=== PATIENT | male | born 1965 | race Caucasian/White ===

== ENCOUNTER 2020-05-17 19:13 | Observation (INO) ==
[2020-05-17] MEDS ORDERED: MORPHINE 4 MG/1 ML VIAL IV STA (19:29)
[2020-05-17] MEDS ORDERED: ASPIRIN 325 MG TABLET PO STA (19:29)
[2020-05-17] MEDS ORDERED: ONDANSETRON 4 MG/2 ML VIAL IV STA (19:29)
[2020-05-17] MEDS ORDERED: NITROGLYCERIN 2% OINT 1 INCH/GM PACK TOP STA (19:29)
[2020-05-17 21:24] LABS: Basophils % 0.3 % (0.0-0.8); Eosinophils # 0.1 10*3/uL (0.0-0.87); Eosinophils % 1.1 % (0.00-10.9); Hematocrit 46.7 VOL% (42.0-52.0); Hemoglobin 16.7 GM/DL (14.0-18.0); Immature Granulocytes % 0.5 %; Immature Granulocytes Absolute 0.03 #; Lymphocytes # 2.6 10*3/uL (1.4-4.0); Lymphocytes % 40.2 % (21.2-54.2); Mean Corpuscular HGB Conc 35.8 GM/DL (32-36); Mean Platelet Volume 11.5 FL (9.6-12.0); Monocytes % 8.1 % (1.7-12.7); Neutrophils % 49.8 % (38.7-73.9); Platelet Count 125 T/CUMM (130-400); Red Blood Count 5.19 MC/CUMM (3.8-5.5); Red Cell Distribution Width 11.9 % (9.3-17.3); White Blood Count 6.4 T/CUMM (4-12)
[2020-05-17 21:51] LABS: Alanine Aminotransferase 56 U/L (16-61); Alkaline Phosphatase 55 U/L (45-117); Aspartate Amino Transferase 27 U/L (0-37); Bilirubin,Total < 0.39 MG/DL (0.2-1.0); Blood Urea Nitrogen 15 MG/DL (7-18); Calcium 9.7 MG/DL (8.5-10.1); Estimated Glom Filtration Rate 102 ML/MIN; Glucose 98 MG/DL (74-106); Osmolality,Calculated 277.5 MOS/KG (273-304); Total Protein 7.7 G/DL (6.4-8.3)
[2020-05-18] MEDS ORDERED: NITROGLYCERIN SL 0.4 MG TABLET SL PRN (01:20)
[2020-05-18] MEDS ORDERED: ACETAMINOPHEN 325 MG TABLET PO PRN (01:21)
[2020-05-18] MEDS ORDERED: ONDANSETRON 4 MG/2 ML VIAL IV PRN (01:21)
[2020-05-18] MEDS ORDERED: hydrALAZINE 20 MG/1 ML VIAL IV PRN (01:21)
[2020-05-18] MEDS ORDERED: DEXTROSE 50% 25 GM/50 ML VIAL IV PRN (01:21)
[2020-05-18] MEDS ORDERED: GLUCAGON 1 MG VIAL IM PRN (01:21)
[2020-05-18] MEDS ORDERED: MORPHINE 4 MG/1 ML VIAL IV PRN (01:21)
[2020-05-18] MEDS ORDERED: DOCUSATE SODIUM 100 MG CAPSULE PO PRN (01:21)
[2020-05-18] MEDS ORDERED: IBUPROFEN 600 MG TABLET PO ONE (01:25)
[2020-05-18 02:33] LABS: Basophils % 0.3 % (0.0-0.8); Eosinophils # 0.1 10*3/uL (0.0-0.87); Eosinophils % 0.9 % (0.00-10.9); Hematocrit 48.5 VOL% (42.0-52.0); Hemoglobin 16.7 GM/DL (14.0-18.0); Immature Granulocytes % 0.3 %; Immature Granulocytes Absolute 0.02 #; Lymphocytes # 2.6 10*3/uL (1.4-4.0); Lymphocytes % 39.2 % (21.2-54.2); Mean Corpuscular HGB Conc 34.4 GM/DL (32-36); Mean Corpuscular Volume 91.9 FL (87-102); Mean Platelet Volume 9.7 FL (9.6-12.0); Monocytes % 7.2 % (1.7-12.7); Neutrophils % 52.1 % (38.7-73.9); Platelet Count 206 T/CUMM (130-400); Red Blood Count 5.28 MC/CUMM (3.8-5.5); White Blood Count 6.7 T/CUMM (4-12)
[2020-05-18] MEDS ORDERED: INFLUENZA VIRUS VACCINE 0.5 ML SYRINGE IM ONE (02:41)
[2020-05-18 02:55] LABS: Calcium 9.5 MG/DL (8.5-10.1); Osmolality,Calculated 282.4 MOS/KG (273-304); Risk Ratio 2.91; Thyroid Stimulating Hormone 3.63 uIU/ml (0.358-3.74); VLDL CHOLESTEROL 28.8 MG/DL
[2020-05-18] MEDS ORDERED: LOSARTAN/HCTZ 50-12.5 MG TABLET PO SCH (09:00)
[2020-05-18] MEDS ORDERED: hydroCHLOROthiazide 25 MG TABLET PO SCH (09:00)
[2020-05-18] MEDS ORDERED: LOSARTAN 50 MG TABLET PO SCH (09:00)
[2020-05-18] MEDS: ENOXAPARIN 40 MG/0.4 ML SYRINGE SUBCUT SCH ×2 (09:29→09:32)
[2020-05-18 09:51] LABS: Troponin I < 0.015 NG/ML (0.00-0.045)
[2020-05-18 11:19] VITALS: BP 130/78
== END 2020-05-18 13:17 | disposition home or self-care (01) ==
LOC: N.ED 19:13 → N.EDINP 19:13 → N.3E 05-18 00:37
PROVIDERS: ADMIT Family Medicine; ATTEND Family Medicine

== ENCOUNTER 2020-07-17 06:15 | Inpatient (IN) ==
[2020-07-17] MEDS ORDERED: LEVOFLOXACIN 500 MG TABLET PO ONE (06:30)
[2020-07-17] MEDS ORDERED: ROCURONIUM 50 MG/5 ML VIAL IV ONE (06:37)
[2020-07-17] MEDS ORDERED: LIDOCAINE 2% 5 ML VIAL ONE (06:37)
[2020-07-17] MEDS ORDERED: fentaNYL 250 MCG/5 ML VIAL ONE ×2 (06:37→07:56)
[2020-07-17] MEDS ORDERED: MIDAZOLAM 2 MG/2 ML VIAL ONE (06:37)
[2020-07-17] MEDS ORDERED: propofoL 200 MG/20 ML VIAL IV ONE (06:37)
[2020-07-17] MEDS ORDERED: PHENYLEPHRINE 1 MG/10 ML SYRINGE IV ONE ×3 (06:37→09:31)
[2020-07-17] MEDS ORDERED: SEVOFLURANE 1 UNIT/15 MINUTE INH ONE (06:37)
[2020-07-17] MEDS ORDERED: ONDANSETRON 4 MG/2 ML VIAL ONE (06:37)
[2020-07-17] MEDS ORDERED: FAMOTIDINE 20 MG TABLET PO ONE (06:38)
[2020-07-17] MEDS ORDERED: GABAPENTIN 400 MG CAPSULE PO ONE (06:38)
[2020-07-17] MEDS ORDERED: ACETAMINOPHEN 500 MG TABLET PO ONE (06:38)
[2020-07-17] MEDS ORDERED: DIAZEPAM 5 MG TABLET PO ONE (06:38)
[2020-07-17] MEDS ORDERED: DEXAMETHASONE 4 MG/1 ML VIAL ONE (06:46)
[2020-07-17] MEDS ORDERED: LIDOCAINE 1% 5 ML VIAL ONE (06:47)
[2020-07-17] MEDS ORDERED: ROPIVACAINE 0.5% 30 ML VIAL ONE ×2 (06:47→10:22)
[2020-07-17] MEDS ORDERED: ACETAMINOPHEN 500 MG TABLET ONE (06:50)
[2020-07-17] MEDS ORDERED: FAMOTIDINE 20 MG TABLET ONE (06:50)
[2020-07-17] MEDS ORDERED: DIAZEPAM 5 MG TABLET ONE (06:50)
[2020-07-17] MEDS ORDERED: GABAPENTIN 400 MG CAPSULE ONE (06:50)
[2020-07-17] MEDS: LACTATED RINGERS 1,000 ML IV SCH ×3 (06:54→09:31)
[2020-07-17] MEDS ORDERED: ceFAZolin 1,000 MG VIAL ONE (08:09)
[2020-07-17 08:59] LABS: Bacteria,Urine Occasional /HPF (Few); Bilirubin,Urine Negative (Negative); Blood, Urine Negative (Negative); Glucose,Urine (UA) Negative (Negative); Ketones,Urine Negative (Negative); Mucus,Urine Occasional /LPF (Occasional); Nitrite,Urine Negative (Negative); Protein,Urine Negative; RBC,Urine 2 /HPF (0-4); Squamous Epithelial Cell,Urine Occasional /HPF (0-10); Urine Appearance CLEAR (Clear); Urine Color Yellow (Yellow); Urine Specific Gravity 1.023 (1.001-1.035); Urine Urobilinogen < 2.0 EU/DL (0.2-1.0); WBC,Urine 2 /HPF (0-6)
[2020-07-17] MEDS ORDERED: LACTATED RINGERS 1,000 ML IV ONE ×2 (09:31)
[2020-07-17] MEDS ORDERED: PHENYLEPHRINE 10 MG/1 ML VIAL IV ONE (09:32)
[2020-07-17] MEDS ORDERED: fentaNYL 100 MCG/2 ML VIAL ONE (09:44)
[2020-07-17] MEDS ORDERED: GLYCOPYRROLATE 0.4 MG/2 ML VIAL ONE (10:30)
[2020-07-17] MEDS ORDERED: NEOSTIGMINE 10 MG/10 ML VIAL ONE (10:30)
[2020-07-17] MEDS ORDERED: LACTULOSE 20 GM/30 ML UDCUP PO PRN (10:48)
[2020-07-17] MEDS ORDERED: ONDANSETRON 4 MG/2 ML VIAL IV PRN (10:48)
[2020-07-17] MEDS ORDERED: NITROGLYCERIN SL 0.4 MG TABLET SL PRN (10:52)
[2020-07-17] MEDS ORDERED: oxyCODONE/ACETAMINOPHEN 5-325 MG TABLET PO PRN (10:53)
[2020-07-17] MEDS ORDERED: diphenhydrAMINE 50 MG/1 ML VIAL IV PRN (10:53)
[2020-07-17] MEDS ORDERED: hydrALAZINE 10 MG TABLET PO PRN (10:54)
[2020-07-17] MEDS: SODIUM CHLORIDE 0.9% 1,000 ML IV SCH (11:12)
[2020-07-17] MEDS: HYDROmorphone 2 MG/1 ML VIAL IV SCH ×6 (13:18→22:11)
[2020-07-17] MEDS: cefTRIAXone 1,000 MG in SYRINGE 1 EACH IV SCH (13:19)
[2020-07-17] MEDS: ACETAMINOPHEN 325 MG TABLET PO SCH ×3 (13:19→23:58)
[2020-07-17 13:58] LABS: Basophils % 0.1 % (0.0-0.8); Hematocrit 43.5 VOL% (42.0-52.0); Hemoglobin 15.1 GM/DL (14.0-18.0); Immature Granulocytes % 0.5 %; Immature Granulocytes Absolute 0.07 #; Lymphocytes # 0.6 10*3/uL (1.4-4.0); Mean Corpuscular HGB Conc 34.7 GM/DL (32-36); Mean Platelet Volume 9.7 FL (9.6-12.0); Monocytes % 1.6 % (1.7-12.7); Neutrophils % 93.8 % (38.7-73.9); Platelet Count 192 T/CUMM (130-400); Red Blood Count 4.73 MC/CUMM (3.8-5.5); Red Cell Distribution Width 11.7 % (9.3-17.3); White Blood Count 15.2 T/CUMM (4-12)
[2020-07-17 14:02] LABS: Calcium 8.6 MG/DL (8.5-10.1); Osmolality,Calculated 282.7 MOS/KG (273-304); Potassium 3.9 MMOL/L (3.5-5.1)
[2020-07-17 18:03] LABS: Band Neutrophils 1 % (0-10); Hypochromasia 1+; Lymphocytes 5 % (20-55); Platelet Estimate Normal; Segmented Neutrophils 93 % (50-85); Total Cells Counted 100
[2020-07-17] MEDS: PROMETHAZINE 25 MG/1 ML VIAL IM PRN (20:11)
[2020-07-17] MEDS: FAMOTIDINE 20 MG TABLET PO SCH (20:11)
[2020-07-17] MEDS: DOCUSATE SODIUM 100 MG CAPSULE PO SCH (20:12)
[2020-07-18] MEDS: HYDROmorphone 2 MG/1 ML VIAL IV SCH ×13 (00:07→23:00)
[2020-07-18] MEDS: SODIUM CHLORIDE 0.9% 1,000 ML IV SCH (00:13)
[2020-07-18] MEDS: PROMETHAZINE 25 MG/1 ML VIAL IM PRN (02:58)
[2020-07-18] MEDS: ACETAMINOPHEN 325 MG TABLET PO SCH ×4 (05:18→20:26)
[2020-07-18 05:48] LABS: Calcium 7.9 MG/DL (8.5-10.1); Osmolality,Calculated 273.1 MOS/KG (273-304); Potassium 4.4 MMOL/L (3.5-5.1)
[2020-07-18 07:13] LABS: Basophils % 0.1 % (0.0-0.8); Hematocrit 40.9 VOL% (42.0-52.0); Hemoglobin 13.6 GM/DL (14.0-18.0); Immature Granulocytes % 0.4 %; Immature Granulocytes Absolute 0.06 #; Lymphocytes # 1.6 10*3/uL (1.4-4.0); Lymphocytes % 11.2 % (21.2-54.2); Mean Corpuscular HGB Conc 33.3 GM/DL (32-36); Mean Corpuscular Volume 96.9 FL (87-102); Mean Platelet Volume 9.7 FL (9.6-12.0); Monocytes % 6.3 % (1.7-12.7); Platelet Count 155 T/CUMM (130-400); Red Blood Count 4.22 MC/CUMM (3.8-5.5); Red Cell Distribution Width 12.1 % (9.3-17.3); White Blood Count 14.5 T/CUMM (4-12)
[2020-07-18] MEDS ORDERED: hydroCHLOROthiazide 25 MG TABLET PO SCH (09:00)
[2020-07-18] MEDS: DOCUSATE SODIUM 100 MG CAPSULE PO SCH ×2 (09:28→20:26)
[2020-07-18] MEDS: ROSUVASTATIN 10 MG TABLET PO SCH (09:28)
[2020-07-18] MEDS: cefTRIAXone 1,000 MG in SYRINGE 1 EACH IV SCH (09:30)
[2020-07-18] MEDS ORDERED: BISACODYL 10 MG SUPP RECTAL PRN (13:14)
[2020-07-18] MEDS: MAGNESIUM HYDROXIDE SUSP 30 ML UDCUP PO PRN (17:37)
[2020-07-18] MEDS: FAMOTIDINE 20 MG TABLET PO SCH (20:27)
[2020-07-19] MEDS: PROMETHAZINE 25 MG/1 ML VIAL IM PRN (00:25)
[2020-07-19] MEDS: HYDROmorphone 2 MG/1 ML VIAL IV SCH ×10 (00:25→22:32)
[2020-07-19] MEDS: ACETAMINOPHEN 325 MG TABLET PO SCH ×4 (03:00→20:46)
[2020-07-19 05:53] LABS: Basophils % 0.1 % (0.0-0.8); Eosinophils # 0.1 10*3/uL (0.0-0.87); Eosinophils % 1.5 % (0.00-10.9); Hematocrit 40.9 VOL% (42.0-52.0); Hemoglobin 13.5 GM/DL (14.0-18.0); Immature Granulocytes % 0.3 %; Immature Granulocytes Absolute 0.03 #; Lymphocytes # 2.6 10*3/uL (1.4-4.0); Lymphocytes % 29.5 % (21.2-54.2); Mean Corpuscular Volume 96.2 FL (87-102); Monocytes % 7.8 % (1.7-12.7); Neutrophils % 60.8 % (38.7-73.9); Platelet Count 152 T/CUMM (130-400); Red Blood Count 4.25 MC/CUMM (3.8-5.5); Red Cell Distribution Width 12.2 % (9.3-17.3); White Blood Count 8.9 T/CUMM (4-12)
[2020-07-19 06:07] LABS: Calcium 8.2 MG/DL (8.5-10.1); Potassium 4.2 MMOL/L (3.5-5.1)
[2020-07-19 06:18] LABS: Platelet Estimate Normal
[2020-07-19 06:19] LABS: Anisocytosis 1+; Macrocytosis Slight
[2020-07-19] MEDS: cefTRIAXone 1,000 MG in SYRINGE 1 EACH IV SCH (08:07)
[2020-07-19] MEDS: ROSUVASTATIN 10 MG TABLET PO SCH (08:10)
[2020-07-19] MEDS: DOCUSATE SODIUM 100 MG CAPSULE PO SCH ×2 (08:10→20:46)
[2020-07-19] MEDS ORDERED: BISACODYL 10 MG SUPP RECTAL ONE (11:00)
[2020-07-19] MEDS ORDERED: hydroCHLOROthiazide 12.5 MG CAPSULE PO ONE (11:00)
[2020-07-19] MEDS: SODIUM CHLORIDE 0.9% 1,000 ML IV SCH ×3 (12:04→16:22)
[2020-07-19] MEDS: MAGNESIUM HYDROXIDE SUSP 30 ML UDCUP PO PRN (19:33)
[2020-07-19] MEDS ORDERED: METOCLOPRAMIDE 10 MG/2 ML VIAL IM PRN (19:48)
[2020-07-19] MEDS: FAMOTIDINE 20 MG TABLET PO SCH (20:46)
[2020-07-19] MEDS: POLYETHYLENE GLYCOL POWDER 17 GM PACK PO PRN (20:46)
[2020-07-19] MEDS: METOCLOPRAMIDE 10 MG/2 ML VIAL IV PRN (20:48)
[2020-07-20] MEDS: HYDROmorphone 2 MG/1 ML VIAL IV SCH ×7 (00:20→12:55)
[2020-07-20] MEDS: ACETAMINOPHEN 325 MG TABLET PO SCH ×2 (02:35→09:02)
[2020-07-20] MEDS: SODIUM CHLORIDE 0.9% 1,000 ML IV SCH (02:36)
[2020-07-20] MEDS: METOCLOPRAMIDE 10 MG/2 ML VIAL IV PRN (06:05)
[2020-07-20] MEDS: POLYETHYLENE GLYCOL POWDER 17 GM PACK PO PRN (06:05)
[2020-07-20 06:26] LABS: Basophils % 0.1 % (0.0-0.8); Eosinophils # 0.1 10*3/uL (0.0-0.87); Eosinophils % 1.5 % (0.00-10.9); Hematocrit 38.6 VOL% (42.0-52.0); Hemoglobin 13.4 GM/DL (14.0-18.0); Immature Granulocytes % 0.5 %; Immature Granulocytes Absolute 0.04 #; Lymphocytes # 1.9 10*3/uL (1.4-4.0); Lymphocytes % 23.3 % (21.2-54.2); Mean Corpuscular HGB Conc 34.7 GM/DL (32-36); Mean Corpuscular Volume 91.9 FL (87-102); Mean Platelet Volume 10.1 FL (9.6-12.0); Monocytes % 8.4 % (1.7-12.7); Neutrophils % 66.2 % (38.7-73.9); Platelet Count 131 T/CUMM (130-400); Red Cell Distribution Width 11.8 % (9.3-17.3)
[2020-07-20 07:02] LABS: Calcium 8.7 MG/DL (8.5-10.1); Osmolality,Calculated 276.5 MOS/KG (273-304); Potassium 3.7 MMOL/L (3.5-5.1)
[2020-07-20] MEDS ORDERED: POTASSIUM CHLORIDE 20 MEQ TABLET PO ONE (07:11)
[2020-07-20] MEDS ORDERED: BISACODYL 10 MG SUPP RECTAL ONE ×2 (07:28→09:00)
[2020-07-20] MEDS: cefTRIAXone 1,000 MG in SYRINGE 1 EACH IV SCH (09:00)
[2020-07-20] MEDS: ROSUVASTATIN 10 MG TABLET PO SCH (09:01)
[2020-07-20] MEDS: DOCUSATE SODIUM 100 MG CAPSULE PO SCH (09:02)
[2020-07-20 12:19] VITALS: BP 139/93
== END 2020-07-20 15:39 | disposition home or self-care (01) | DRG 657 ==
LOC: N.OR 06:15 → N.SDSINP 06:16 → N.5E 10:48
PROVIDERS: ADMIT Surgery; ATTEND Surgery